=== PATIENT | female | born 2000 | race Caucasian/White ===

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

== ENCOUNTER 2022-02-28 09:23 | Emergency (ER) | payer OTHER, SELFPAY ==
--- NOTE | ~2022-02-28 | US_ITS ---
EXAMINATION: US ABDOMEN LIMITED CLINICAL INFORMATION: Right upper quadrant pain. COMPARISON: None TECHNIQUE: Real-time imaging of the right upper quadrant abdominal viscera. FINDINGS: PANCREAS: Visualized portions unremarkable. LIVER: Unremarkable. GALLBLADDER: Unremarkable. COMMON BILE DUCT: Normal in caliber measuring 0.5 cm in diameter. RIGHT KIDNEY: 10.9 cm. Unremarkable. FREE FLUID: None. US/US abdomen limited IMPRESSION: Unremarkable right upper quadrant ultrasound.
--- NOTE | ~2022-02-28 | US_ITS ---
EXAMINATION:US pelvic and transvaginal CLINICAL INFORMATION: Reason for Exam lower and pain, intermittent COMPARISON: No priors available. LMP: 01/24/2022 FINDINGS: UTERUS: The uterus is anteverted. Size: 9.1 x 4 x 5.4 cm. Uterine mass: There is no uterine mass. Cervix: Grossly unremarkable. Endometrium: No ultrasound evidence of endometrial lesion. endometrial thickness measures 0.4 cm ADNEXA: Normal Right ovary: Normal in size. Left ovary: Normal in size. Doppler exam: Normal Doppler flow identified in both ovaries. FREE FLUID: Trace amount of free fluid. Likely physiologic. OTHER FINDINGS: None US/US pelvic and transvaginal IMPRESSION: Normal pelvic ultrasound.
[2022-02-28 09:33] VITALS: BP 116/64; PULSE 66; RESP 16; TEMP 36.7; O2SAT 99; BMI 22.4
[2022-02-28 10:10] LABS: MANUAL DIFF FLAG NO
[2022-02-28] MEDS: 0.9 % Sodium Chloride 1,000 ML 999 ML IV (10:11)
[2022-02-28] MEDS: Ketorolac Tromethamine 15 MG/ML VIAL IVPUSH ×2 (10:11→11:30)
[2022-02-28 10:16] LABS: Basophils Absolute Auto 0.1 X10*3/uL (0.0-0.2); Basophils Percent Auto 0.6 % (0-2); Eosinophils Absolute Auto 0.1 X10*3/uL (0.0-0.4); Eosinophils Percent Auto 0.9 % (0-4); Hematocrit 36.8 % (37.0-47.0); Hemoglobin 12.2 g/dl (12.0-16.0); Imm Gran Abs Auto 0.03 X10*3/uL (0.00-0.03); Imm Gran Pct Auto 0.4 % (0.0-0.4); Lymphocytes Absolute Auto 3.1 X10*3/uL (1.2-4.9); Lymphocytes Percent Auto 38.7 % (20-40); Mean Corpuscular HGB Conc 33.2 g/dl (31.0-35.0); Mean Corpuscular Hemoglobin 29.3 pg (27.0-33.0); Mean Corpuscular Volume 88.5 fL (80.0-98.0); Mean Platelet Volume 11.2 fL (9.4-12.3); Monocytes Absolute Auto 0.6 X10*3/uL (0.1-1.2); Monocytes Percent Auto 7.3 % (2-11); Neutrophils Absolute Auto 4.2 x10*3/uL (2.0-8.3); Neutrophils Percent Auto 52.1 % (45-73); Platelet Count 240 X10*3/uL (160-400); Red Blood Count 4.16 X10*6/uL (4.20-5.50); Red Cell Distribution Width 12.8 % (11.0-16.0)
[2022-02-28 10:30] LABS: Appearance Urine CLEAR; Color Urine YELLOW; Glucose Urine UA NEG (NEG); Leukocyte Esterase Urine NEG (NEG); Nitrite Urine NEG (NEG); Specific Gravity - Urine <= 1.005 (1.005-1.025); Urine Blood NEG (NEG); Urine Ketones NEG (NEG); Urine Protein NEG (NEG-TRACE)
[2022-02-28 10:31] LABS: UPreg QC Valid YES; Urine Pregnancy NEGATIVE (NEGATIVE)
--- NOTE | 2022-02-28 10:49 | ED_ITS ---
HPI - General Adult General Chief complaint: Back Pain/Injury Stated complaint: kidney pain Time Seen by Provider: 02/28/22 09:43 Source: patient Mode of arrival: ambulatory History of Present Illness HPI narrative: 21-year-old female with no significant past medical history presenting to ED complaining of acute on chronic right-sided flank pain radiating to low back/low abdomen worsening today. Reports family history of polycystic kidney, patient has not been diagnosed herself. Admits urine has been more concentrated. Denies fever, chills, nausea, vomiting, dysuria, hematuria, vaginal bleeding/discharge. Onset (ago): day(s) Related Data Allergies Allergy/AdvReac Type Severity Reaction Status Date / Time No Known Allergies Allergy Verified 02/28/22 09:47 Review of Systems Review of Systems: Constitutional: No Fever, No Chills, No Fatigue, No Malai se ENT/Mouth: No Ear Pain, No Nasal Congestion, No sore throat, No Rhinorrhea, No Swallowing Difficulty Eyes: No Eye Pain, No Swelling, No Redness Cardiovascular: No Chest Pain, No SOB, No Edema, No Palpitations Respiratory: No Cough, No Sputum, No Dyspnea Gastrointestinal: No Nausea, No Vomiting, No Diarrhea, No Constipation, + Abdominal pain Genitourinary: No irregular bleeding, No Dysuria, No Urinary Frequency, No Hematuria, No Urinary Incontinence/retention, No Flank Pain, No Urinary Flow Ch anges Musculoskeletal: + joint pain, No Myalgias, No Joint Swelling Skin: No Skin Lesions, No rash Neuro: No Weakness, No Numbness, No Dizziness, No Headache Yes all other systems are reviewed and are negative [facility] Past Medical History Attestation statement: The following information was validated with the patient. Social History Social History Advance Directives: No Advance Directives Information Provided: No Physical Exam ED Vital Signs: Vital Signs - 24 hr 02/28/22 09:33 02/28/22 11:48 Temperature 98.1 F Pulse Rate 66 79 Respiratory Rate 16 16 Blood Pressure 116/64 114/63 Pulse Oximetry 99 100 Oxygen Delivery Method Room Air Room Air BMI result Body Mass Index 22.4 Const General: cooperative, healthy appearing, no acute distress, alert and awake Orientation/consciousness: patient oriented x3 Limitations: no limitations HENMT Head: Yes normal to inspection and Yes atraumatic Ears: hearing grossly normal bilaterally General nose exam: Normal external nose present Face and sinus: Yes normal facial exam Eyes General: appearance normal, both eyes and all related structures EOM: EOMs intact bilaterally Neck Neck: Yes normal visual inspection and Yes no meningeal signs Resp Effort & Inspection: normal respiratory effort and no respiratory distress Auscultation: clear to auscultation bilaterally Cardio Rate: regular rate Heart sounds: S1 normal heart sound present and S2 normal heart sound present GI Inspection: Yes normal to inspection Palpation (GI): Soft to palpation, Tenderness to palpation present (GI) in the RUQ, no guarding and not rigid General: Yes CVA tenderness on the right Back/Spine/Pelvis Back: CVA tenderness Skin Rashes: no rashes Wounds: no wounds Neuro General: patient oriented x3, tone normal and no meningeal signs Gait exam (Neuro): Normal gait present Extrem General: Yes normal to inspection Course Course Course Narrative: -1049--no leukocytosis. UA negative. Labs otherwise unremarkable US abdomen limited IMPRESSION: Unremarkable right upper quadrant ultrasound. >> on re-evaluation patient is calm and comfortable. On repeat palpation still mildly tender in RUQ, no RLQ/lower abdominal tenderness. Results discussed with patient including worrisome signs and symptoms and strict return precautions and recommended follow-up with PCP/Urology -1200--upon attempted discharge spoke with patient's mother on the phone who is unhappy without finding cause of patient's pain. She reports patient has been having intermittent lower abdominal/pelvic pain over the past few weeks, requesting pelvic ultrasound at this time. I discussed with mother that patient is not having this pain at present and workup can be done outpatient, however mother persistent so will order pelvic ultrasound now US pelvic and transvaginal IMPRESSION: Normal pelvic ultrasound.? > results discussed with patient. Patient was provided with printout of labs and imaging reports. Is to follow up with PCP/OBGYN Medical Decision Making MDM Narrative Medical decision making narrative: 21-year-old female with no significant past medical history presenting to ED complaining of acute on chronic right-sided flank pain radiating to low back/low abdomen worsening today. On exam vital signs stable, NAD/nontoxic appearing, abdomen soft with RUQ/epigastric and CVA tenderness, no rebound or guarding. Concern for cholecystitis/lithiasis vs renal stone vs pyelo/UTI. Lower concern for appendicitis/diverticulitis or ovarian pathology Plan: Labs, UA, , RUQ and renal ultrasound, IVF, pain management Medical Records Medical records reviewed: Yes I reviewed the patient's medical records. Lab Data Lab results reviewed: Yes I reviewed the patient's lab results. Result diagrams: 02/28/22 10:07 02/28/22 11:08 Labs: Lab Results 02/28/22 02/28/22 02/28/22 Range/Units 10:07 10:14 10:14 WBC 8.0 (4.8-10.8) X10*3/uL RBC 4.16 L (4.20-5.50) X10*6/uL Hgb 12.2 (12.0-16.0) g/dl Hct 36.8 L (37.0-47.0) % MCV 88.5 (80.0-98.0) fL MCH 29.3 (27.0-33.0) pg MCHC 33.2 (31.0-35.0) g/dl RDW 12.8 (11.0-16.0) % Plt Count 240 (160-400) X10*3/uL MPV 11.2 (9.4-12.3) fL Immature Gran % (Auto) 0.4 (0.0-0.4) % Neut % (Auto) 52.1 (45-73) % Lymph % (Auto) 38.7 (20-40) % [place] % (Auto) 7.3 (2-11) % Eos % (Auto) 0.9 (0-4) % Baso % (Auto) 0.6 (0-2) % Lymph # (Auto) 3.1 (1.2-4.9) X10*3/uL [place] # (Auto) 0.6 (0.1-1.2) X10*3/uL Eos # (Auto) 0.1 (0.0-0.4) X10*3/uL Baso # (Auto) 0.1 (0.0-0.2) X10*3/uL Abs Immat Gran (auto) 0.03 (0.00-0.03) X10*3/uL Absolute Neuts (auto) 4.2 (2.0-8.3) x10*3/uL Absolute Nucleated RBC 0.000 (0.0-0.012) X10*3/uL Nucleated RBC % (auto) 0.0 (0.0-0.2) /100WBC Sodium (135-145) mmol/L Potassium (3.3-5.1) mmol/L Chloride (96-108) mmol/L Carbon Dioxide (22-29) mmol/L Anion Gap (12-20) BUN (9-16) mg/dL Creatinine (0.5-1.4) mg/dL Estim Creat Clear Calc Estimated GFR Random Glucose (60-115) mg/dL Calcium (8.4-10.2) mg/dL Magnesium (1.6-2.6) mg/dL Total Bilirubin (0.0-1.0) mg/dL Direct Bilirubin (0.0-0.5) mg/dL AST (5-31) U/L ALT (0-31) U/L Alkaline Phosphatase (39-117) U/L Total Protein (6.5-8.0) g/dL Albumin (3.5-5.0) g/dL Lipase (8-78) U/L Urine Color YELLOW Urine Appearance CLEAR Urine pH 6.0 (5.0-8.0) Ur Specific Mcgraw <= 1.005 (1.005-1.025) Urine Protein NEG (NEG-TRACE) MG/DL Urine Glucose (UA) NEG (NEG) MG/DL Urine Ketones NEG (NEG) MG/DL Urine Blood NEG (NEG) Urine Nitrite NEG (NEG) Ur Leukocyte Esterase NEG (NEG) Urine Test NEGATIVE (NEGATIVE) 02/28/22 Range/Units 11:08 WBC (4.8-10.8) X10*3/uL RBC (4.20-5.50) X10*6/uL Hgb (12.0-16.0) g/dl Hct (37.0-47.0) % MCV (80.0-98.0) fL MCH (27.0-33.0) pg MCHC (31.0-35.0) g/dl RDW (11.0-16.0) % Plt Count (160-400) X10*3/uL MPV (9.4-12.3) fL Immature Gran % (Auto) (0.0-0.4) % Neut % (Auto) (45-73) % Lymph % (Auto) (20-40) % [place] % (Auto) (2-11) % Eos % (Auto) (0-4) % Baso % (Auto) (0-2) % Lymph # (Auto) (1.2-4.9) X10*3/uL [place] # (Auto) (0.1-1.2) X10*3/uL Eos # (Auto) (0.0-0.4) X10*3/uL Baso # (Auto) (0.0-0.2) X10*3/uL Abs Immat Gran (auto) (0.00-0.03) X10*3/uL Absolute Neuts (auto) (2.0-8.3) x10*3/uL Absolute Nucleated RBC (0.0-0.012) X10*3/uL Nucleated RBC % (auto) (0.0-0.2) /100WBC Sodium 140 (135-145) mmol/L Potassium 3.7 (3.3-5.1) mmol/L Chloride 109 H (96-108) mmol/L Carbon Dioxide 23 (22-29) mmol/L Anion Gap 12 (12-20) BUN 13 (9-16) mg/dL Creatinine 0.99 (0.5-1.4) mg/dL Estim Creat Clear Calc 82.2 Estimated GFR > 60 Random Glucose 84 (60-115) mg/dL Calcium 8.6 (8.4-10.2) mg/dL Magnesium 1.9 (1.6-2.6) mg/dL Total Bilirubin 0.2 (0.0-1.0) mg/dL Direct Bilirubin < 0.2 (0.0-0.5) mg/dL AST 25 (5-31) U/L ALT 6 (0-31) U/L Alkaline Phosphatase 38 L (39-117) U/L Total Protein 6.7 (6.5-8.0) g/dL Albumin 3.8 (3.5-5.0) g/dL Lipase 72 (8-78) U/L Urine Color Urine Appearance Urine pH (5.0-8.0) Ur Specific Mcgraw (1.005-1.025) Urine Protein (NEG-TRACE) MG/DL Urine Glucose (UA) (NEG) MG/DL Urine Ketones (NEG) MG/DL Urine Blood (NEG) Urine Nitrite (NEG) Ur Leukocyte Esterase (NEG) Urine Test (NEGATIVE) Discharge Plan Discharge Clinical Impression: Abdominal pain Qualifiers: Abdominal location: right upper quadrant Qualified Code(s): R10.11 - Right upper quadrant pain Patient Disposition: Home, Self-Care Instructions: Abdominal Pain (ED) Additional Instructions: Your blood work, urine, and ultrasound were reassuring today in the emergency department. The stay hydrated at home. Take Tylenol and Motrin as needed. Follow-up with your primary care doctor, if symptoms persist or worsen, pain bec omes constant or unbearable, you have fever, nausea or vomiting please return to the emergency department Referrals: Physician,Keiry J [Primary Care Provider] - Stand Alone Forms: Work/School Release
[2022-02-28 11:29] LABS: Alanine Aminotransferase 6 U/L (0-31); Albumin Level 3.8 g/dL (3.5-5.0); Alkaline Phosphatase 38 U/L (39-117); Anion Gap 12 (12-20); Aspartate Amino Transferase 25 U/L (5-31); Bilirubin Direct < 0.2 mg/dL (0.0-0.5); Bilirubin Total 0.2 mg/dL (0.0-1.0); Blood Urea Nitrogen 13 mg/dL (9-16); Calcium 8.6 mg/dL (8.4-10.2); Carbon Dioxide 23 mmol/L (22-29); Chloride 109 mmol/L (96-108); Creatinine Clr Calc Pharmacy 82.2; Estimated Glomerular Filt Rate > 60; Glucose Random 84 mg/dL (60-115); Lipase 72 U/L (8-78); Magnesium 1.9 mg/dL (1.6-2.6); Potassium 3.7 mmol/L (3.3-5.1); Sodium 140 mmol/L (135-145); Total Protein 6.7 g/dL (6.5-8.0)
[2022-02-28] MEDS: Acetaminophen 325 MG TABLET 650 MG PO (11:30)
[2022-02-28 11:48] VITALS: BP 114/63; PULSE 79; RESP 16; O2SAT 100
[2022-02-28 14:33] VITALS: BP 108/61; PULSE 79; RESP 14; O2SAT 99
== END 2022-02-28 14:39 | disposition home or self-care (01) ==
PROVIDERS: Physician Assistant; Emergency Provider Emergency Medicine
DX: R10.11 Right upper quadrant pain (principal)
CPT/HCPCS: 36415; 76705; 76830; 76856; 80048; 80076; 81003; 81025; 83690; 83735; 85025; 96361; 96374; 96376; 99284; J1885